=== PATIENT | female | born 1965 | race American Indian/Alaskan Native ===

== ENCOUNTER 2017-08-17 08:47 | Outpatient (CLI) | payer OTHER ==
--- NOTE | 2017-08-17 09:57 | Mammography Report ---
BILATERAL MAMMOGRAM: FINDINGS: The breasts are almost entirely fat (<25% glandular). No mass, distortion, suspicious calcification, or skin change is seen. No interval changes when compared to prior exam in August 2016. CAD was utilized. IMPRESSION: Negative mammogram. There is no mammographic evidence of malignancy. RECOMMENDATION: Follow-up per ACS guidelines. BI-RADS CATEGORY: 1 = Negative ACR BI-RADS MAMMOGRAPHIC CODES: 0 = Needs additional imaging evaluation; 1 = Negative; 2 = Benign; 3 = Probably benign; 4 = Suspicious; 5 = Malignant; 6 = Known biopsy-proven malignancy COMMENT: 1. Dense breast tissue, i.e., adenosis, fibrocystic changes, etc., may obscure an underlying neoplasm. 2. Approximately 10% of cancers are not detected with mammography. 3. A negative mammography report should not delay biopsy if a clinically suspicious mass is present. COMMENT: Patient follow-up letters are generated in [employer].
== END 2017-08-17 08:48 | disposition home or self-care (01) ==
LOC: SPVWC 08:47
PROVIDERS: ATTEND Family Medicine
DX: Z12.31 Encounter for screening mammogram for malignant neoplasm of breast (principal)
CPT/HCPCS: 77067; G0202

== ENCOUNTER 2018-01-14 08:43 | Outpatient (CLI) | payer OTHER ==
--- NOTE | 2018-01-14 15:30 | Ultrasound Report ---
TRANSABDOMINAL AND TRANSVAGINAL PELVIC ULTRASOUND: 01/14/18 08:43:00 CLINICAL: Right lower quadrant pain and mass on abdominal CT. I do not have CT images or report. FINDINGS: Transabdominal and transvaginal pelvic ultrasound was performed. However, both examinations are limited because of body habitus and elongation of the uterus. The uterus is enlarged with a heterogeneous echo pattern and measures 15.6 x 6.2 x 7.4 cm. There appears to be a right fundal subserosal fibroid to the right of midline measuring 5.5 x 5.6 x 5.2 cm. No other measurable fibroids. The endometrium was not imaged. Ovaries were not identified. No free fluid. Normal urinary bladder. IMPRESSION: Enlarged fibroid uterus but a very limited evaluation due to body habitus and elongation of the uterus. A probable 5.6 cm right fundal uterine fibroid. Consider MRI or better evaluation of the uterus and ovaries and to better exclude a non-uterine adnexal mass.
== END 2018-01-14 08:44 | disposition home or self-care (01) ==
LOC: SPVWC 08:43
PROVIDERS: ATTEND Family Medicine
DX: R19.00 Intra-abdominal and pelvic swelling, mass and lump, unspecified site (principal); R10.31 Right lower quadrant pain
CPT/HCPCS: 76830; 76856

== ENCOUNTER 2018-05-17 09:50 | Outpatient (CLI) | payer OTHER ==
--- NOTE | 2018-05-17 14:52 | Magnetic Resonance Report ---
MRI PELVIS WITHOUTAND WITH CONTRAST: 05/17/18 09:50:00 CLINICAL: Pelvic mass. COMPARISON :01/14/18 pelvic ultrasound TECHNIQUE: Sagittal, coronal and axial T1 and T2 fat sat sequences plus sagittal, coronal and axial postcontrast T1 fat sequences on a 1.5 Christine magnet. 8.0 cc of Multihance was injected intravenously for contrast portion of exam. Consent was obtained prior to the administration of contrast. FINDINGS: An enlarged fibroid uterus measures 13.7 cm craniocaudal dimension by 8.1 cm AP dimension by 12.0 cm transverse dimension. The dominant uterine fibroid is a fundal subserosal fibroid slightly to the right of midline measuring 8.5 x 7.6 x 7.1 cm. It demonstrates heterogeneous but near complete enhancement postcontrast. A second subserosal fibroid is connected to the larger fibroid in this fibroid extends to the left of midline. It measures approximately 6.1 x 5.3 x 5.0 cm. The uterine body has a tortuous configuration and extends obliquely to the right. The endometrium is normal and measures 5.7 mm AP thickness. A few nabothian cysts but otherwise normal cervix. A small right ovary is identified and contains a dominant 1.0 cm follicle. A left ovary is not confidently identified. However, no adnexal mass. The urinary bladder is normal. Normal rectum and sigmoid colon. No free pelvic fluid or lymphadenopathy. The bones and soft tissues are normal. IMPRESSION: 1. Uterine leiomyomata with uterine enlargement and a dominant 8.5 cm right fundal fibroid. A left fundal fibroid measures 6.1 cm. 2. Normal endometrium. 3. Normal right ovary. 4. A left ovary is not identified. 5. No adnexal mass.
== END 2018-05-17 09:51 | disposition home or self-care (01) ==
LOC: MRI 09:50
PROVIDERS: ATTEND Family Medicine
DX: D25.9 Leiomyoma of uterus, unspecified (principal); N88.8 Other specified noninflammatory disorders of cervix uteri
CPT/HCPCS: 72197; A9577

== ENCOUNTER 2018-08-18 08:21 | Outpatient (CLI) | payer OTHER ==
--- NOTE | 2018-08-18 10:39 | Mammography Report ---
BILATERAL DIGITAL SCREENING MAMMOGRAM with CAD: 08/18/18 08:21:00 CLINICAL: Routine screening. COMPARISON:08/17/17 FINDINGS: The breasts are almost entirely fatty. No mass, architectural distortion or suspicious calcifications. IMPRESSION: No mammographic evidence of malignancy. BI-RADS CATEGORY: 2 -- Benign RECOMMENDATION: Routine mammographic screening in one year. COMMENT: Patient follow-up letters are generated by our [employer] application.
== END 2018-08-18 08:22 | disposition home or self-care (01) ==
LOC: SPVWC 08:21
PROVIDERS: ATTEND Family Medicine
DX: Z12.31 Encounter for screening mammogram for malignant neoplasm of breast (principal)
CPT/HCPCS: 77067

== ENCOUNTER 2019-09-02 08:41 | Outpatient (CLI) | payer OTHER ==
--- NOTE | 2019-09-05 13:09 | Mammography Report ---
DIGITAL SCREENING MAMMOGRAM WITH CAD, 09/02/2019 INDICATION: Routine screening mammography. TECHNIQUE: Digital bilateral 2D mammography was obtained in the craniocaudal and mediolateral obliq ue projections. This examination was interpreted with the benefit of Computer-Aided Detection analysi s. COMPARISON: 08/18/2018 FINDINGS: Breast Density: There are scattered areas of fibroglandular density. There is no evidence of dominant mass, suspicious calcifications or architectural distortion in eithe r breast. IMPRESSION: No mammographic evidence of malignancy. Follow up recommendation: Routine yearly BI-RADS Category 2: Benign. A "normal" or negative report should not discourage follow up or biopsy of a clinically significant f inding. A written summary of these findings will be mailed to the patient. The patient will be entered into a mammography reporting system which will generate a reminder letter for the patient's next appointmen t at the appropriate interval. The [employer] recommends yearly mammograms starting at age 40 and continuing as l damion as a woman is in good health. Breast MRI is recommended for women with an approximate 20-25% or greater lifetime risk of breast cancer, including women with a strong family history of breast or ova christine cancer or who have been treated for Hodgkin's disease. Signer Name: Kavon Myrick MD Signed: 09/05/2019 1:04 PM Workstation Name: [id number]
== END 2019-09-02 08:42 | disposition home or self-care (01) ==
LOC: SPVWC 08:41
PROVIDERS: ATTEND Family Medicine
DX: Z12.31 Encounter for screening mammogram for malignant neoplasm of breast (principal)
CPT/HCPCS: 77067